=== PATIENT | male | born 1945 | race Caucasian/White ===

== ENCOUNTER 2022-10-26 16:06 | Inpatient (IN) | payer OTHER ==
[~2022-10-26] VITALS: Ht 177.8 cm; Wt 79.4 kg
[~2022-10-26 16:06] MED LIST: ATOR40TA PO; Aspir 8181 MG PO; BISA10S PR; CYAN500 PO; DOCU100 PO; FOLI1 PO; Fleet Enema132 ML PR; LEVOFLOXAC750 MG/150 IV; LOTREL 10-20 M1 EACH PO; ONDA4ODT PO; OXYCODONE PO; SCOPTP TOP; VITAMIN D31000 UNI2 PO; Vitamin B-1250 MCG
[2022-10-26 17:05] LABS: BASOPHILS ABSOLUTE AUTO 0.01 K/mm3 (0.00-0.23); BASOPHILS PERCENT AUTO 0 % (0-2); EOSINOPHILS ABSOLUTE AUTO 0.02 K/mm3 (0.00-0.68); EOSINOPHILS PERCENT AUTO 0 % (0-6); Hematocrit 34.7 % (37.0-53.0); Hemoglobin 11.6 g/dL (13.5-17.5); IMMATURE GRAN ABSOLUTE AUTO 0.04 K/mm3 (0.00-0.10); IMMATURE GRAN PERCENT AUTO 1 % (0-1); LYMPHOCYTES ABSOLUTE AUTO 1.11 K/mm3 (0.84-5.20); LYMPHOCYTES PERCENT AUTO 14 % (21-46); MONOCYTES ABSOLUTE AUTO 0.54 K/mm3 (0.16-1.47); MONOCYTES PERCENT AUTO 7 % (4-13); Mean Corpuscular HGB 33.6 pg (26.0-34.0); Mean Corpuscular HGB Conc 33.4 g/dL (31.5-36.5); Mean Corpuscular Volume 101 fL (80-100); Mean Platelet Volume 10.5 fL (9.1-12.4); NEUTROPHILS ABSOLUTE AUTO 6.36 K/mm3 (1.96-9.15); NEUTROPHILS PERCENT AUTO 79 % (41-73); Platelet Count 235 K/mm3 (150-400); RDW Coefficient Variation 14.2 % (11.7-14.2); RDW Standard Deviation 52.7 fL (35.1-46.3); Red Blood Cell Count 3.45 M/mm3 (4.30-5.90); White Blood Cell Count 8.08 K/mm3 (4.00-11.30)
[2022-10-26 17:27] LABS: Albumin, Blood 2.7 g/dL (3.4-5.0); Albumin/Globulin Ratio 0.7 (0.8-1.8); Bilirubin, Total 0.6 mg/dL (0.1-1.0); Bun/Creatinine Ratio 57.4 (12.0-20.0); Calcium, Blood 8.4 mg/dL (8.5-10.1); Creatinine, Blood 0.68 mg/dL (0.60-1.20); Globulin, Blood 3.8 g/dL (2.2-4.0); Total Protein, Blood 6.5 g/dL (6.4-8.2)
[2022-10-26 22:09] LABS: Hematocrit 26.1 % (37.0-53.0); Hemoglobin 8.6 g/dL (13.5-17.5); Mean Corpuscular HGB 33.7 pg (26.0-34.0); Mean Corpuscular Volume 102 fL (80-100); Mean Platelet Volume 11.1 fL (9.1-12.4); Platelet Count 159 K/mm3 (150-400); RDW Coefficient Variation 14.4 % (11.7-14.2); RDW Standard Deviation 53.8 fL (35.1-46.3); Red Blood Cell Count 2.55 M/mm3 (4.30-5.90); White Blood Cell Count 8.17 K/mm3 (4.00-11.30)
[2022-10-27 02:37] LABS: Hematocrit 20.2 % (37.0-53.0); Hemoglobin 6.8 g/dL (13.5-17.5)
--- NOTE | 2022-10-27 03:30 | NUR ---
PT ADMITTED TO ROOM ICU 10 AT 0105. PT SLIDE TRANSFERRED TO BED FROM [facility]. PT DENIES COMPLAINTS OF ABDOMINAL PAIN OR ANY GI DISTRESS AT THIS TIME. ABDOMEN SLIGHTLY DISTENDED WHICH PT STATES IS NORMAL FOR HIM. PERCUSSION TO ABDOMEN REVEALS HOLLOW GAS-TYPE SOUNDS. NO REBOUND TENDERNESS NOTED. PT ALERT AND ORIENTED. PLEASANT AND COOPERATIVE WITH CARE AND ASSESSMENT. IS SOMEWHAT SLOW IN RESPONSES. IS ABLE TO ANSWER QUESTIONS APPROPRIATELY. DR ARMIJO HAS COME TO SEE PT IN ROOM. PLAN IS FOR AM ENDOSCOPY. SOONER IF NECESSARY. DR ARMIJO STATED THAT NGT TO BE PLACED IF PT'S ABDOMEN BECOMES INCREASINGLY FIRM, AND INCREASE IN PAIN. WILL MONITOR. WILL REVIEW CHART AND PLAN OF CARE FOR THIS PT. PT HAS BEGUN FIRST OF TWO UNITS OF PRBC'S. NO S/S TRANSFUSION REACTIONS TO NOTE.
--- NOTE | 2022-10-27 05:35 | NUR ---
PT HAS COMPLETED FIRST OF TWO UNITS PRBC'S. NO S/S TRANSFUSION REACTIONS TO NOTE. PT PLACED TO ROOM AIR. DESATURATED WHILE ASLEEP TO 85 PERCENT. PLACED NASAL CANNULA AT 3 L/M. PT'S SATURATIONS CURRENTLY 99 PERCENT. WILL TITRATE LOWER ABLE. PT HAS VOIDED ONCE SINCE ADMIT A CONCENTRATED URINE. PT HAS LOW LEVEL PAIN IN ABDOMEN 09/30. STATES SO MUCH BETTER THAN PAIN THAT HE HAD WHEN HE FIRST CAME TO ED. SPOKE SEVERAL TIMES WITH DR ARMIJO AND WITH DR ROSENBERG WHEN THEY CALLED TO CHECK ON PT'S STATUS. ORDERS HAVE BEEN RECEIVED. HAVE NOT NEEDED TO START LEVOPHED FOR BLOOD PRESSURE SUPPORT. WILL CONTINUE TO MONITOR PT, AND WILL REPORT OFF TO ONCOMING RN.
[2022-10-27 06:21] LABS: Albumin, Blood 1.9 g/dL (3.4-5.0); Albumin/Globulin Ratio 0.7 (0.8-1.8); Bilirubin, Total 0.4 mg/dL (0.1-1.0); Bun/Creatinine Ratio 68.5 (12.0-20.0); Calcium, Blood 7.3 mg/dL (8.5-10.1); Creatinine, Blood 0.69 mg/dL (0.60-1.20); Globulin, Blood 2.7 g/dL (2.2-4.0); Potassium, Blood 4.3 mmol/L (3.5-5.5); Total Protein, Blood 4.6 g/dL (6.4-8.2)
[2022-10-27] MEDS ORDERED: CARV6.25 PO (06:23)
[2022-10-27 07:44] LABS: BASOPHILS ABSOLUTE AUTO 0.01 K/mm3 (0.00-0.23); BASOPHILS PERCENT AUTO 0 % (0-2); EOSINOPHILS PERCENT AUTO 0 % (0-6); Hematocrit 27.3 % (37.0-53.0); Hemoglobin 9.2 g/dL (13.5-17.5); IMMATURE GRAN ABSOLUTE AUTO 0.05 K/mm3 (0.00-0.10); IMMATURE GRAN PERCENT AUTO 0 % (0-1); LYMPHOCYTES ABSOLUTE AUTO 0.93 K/mm3 (0.84-5.20); LYMPHOCYTES PERCENT AUTO 8 % (21-46); MONOCYTES ABSOLUTE AUTO 0.67 K/mm3 (0.16-1.47); MONOCYTES PERCENT AUTO 6 % (4-13); Mean Corpuscular HGB 31.2 pg (26.0-34.0); Mean Corpuscular HGB Conc 33.7 g/dL (31.5-36.5); NEUTROPHILS ABSOLUTE AUTO 9.79 K/mm3 (1.96-9.15); NEUTROPHILS PERCENT AUTO 86 % (41-73); RDW Coefficient Variation 22.1 % (11.7-14.2); RDW Standard Deviation 74.8 fL (35.1-46.3); Red Blood Cell Count 2.95 M/mm3 (4.30-5.90); White Blood Cell Count 11.45 K/mm3 (4.00-11.30)
[2022-10-27 07:49] LABS: Mean Corpuscular Volume 93 fL (80-100); Mean Platelet Volume 10.5 fL (9.1-12.4)
[2022-10-27 07:50] LABS: Platelet Count 187 K/mm3 (150-400)
--- NOTE | 2022-10-27 08:37 | NUR ---
Assumed care of pt at 0700. Report received from Naga DANIELS. Pt A&O x 4. Answers questions, follows commands, verbalizes needs. Pleasant and cooperative with care. When asked, he states his last alcoholic bevarge was Monday "I tried to drink a beer, but I couldn't finish it". Pt states he has stopped drinking before and has not experienced alcohol withdrawal. Understands that he will be closely monitored for withdrawals for the next few days. Oral care done with 2 suction swabs. Pt has poor denitition and it appears that many of his teeth have broken off. He states he does not have dentures at home. When asked how he cleans his mouth, he says "I don't" and follows with "I swish around some blackberry srikanth every now and then". Consult placed for dental hygenist. Dr Lamar in to see patient. Provider states he is not concerned for an ileus and will be signing off. Dr Cobos and Dr Torie Chappell in to see patient. Discussed that pt's urine has a foul odor. Plan to send urinalysis. Plan of care discussed with Dr Nunes, he states that endoscopy will happen this afternoon. Pt may have water but should be NPO after 1300. Pt updated on plan of care.
[2022-10-27 09:42] LABS: Source, Urine Voided
[2022-10-27 09:51] LABS: Appearance, Urine Clear (Clear); Bilirubin, Urine Neg (Neg); Blood, Urine 3+ (Neg); Color, Urine Yellow (P-Yellow); Glucose Qualitative, Urine Neg (Neg); Ketones, Urine Neg (Neg); Leukocyte Esterase, Urine Neg (Neg); Nitrite, Urine Neg (Neg); Protein, Urine 1+ (Neg); Urobilinogen, Urine NORM (Normal)
[2022-10-27 10:01] LABS: Bacteria Not Seen /hpf; Squamous Epithelial Cells Not Seen /hpf (Few); White Blood Cells, Urine Not Seen /hpf (0-5)
[2022-10-27 13:04] LABS: Hematocrit 25.9 % (37.0-53.0); Hemoglobin 8.8 g/dL (13.5-17.5)
[2022-10-27 17:12] LABS: Hematocrit 24.3 % (37.0-53.0); Hemoglobin 8.1 g/dL (13.5-17.5)
--- NOTE | 2022-10-27 17:47 | NUR ---
SUMMARY Pt is still awaiting upper endoscopy which is scheduled for this afternoon/evening. Neuro/Musc/Psych: A&O x 4. Answers questions, follows commands, verbalizes needs. Pleasant and cooperative with care. Moves all ext with equal strength and range of motion. Performing ADLs independently, in bed. Spouse at bedside for approx 6 hrs today. No signs of ETOH WD. Resp: Lungs coarse t/o. Remains on 2 LPM NC. Copious amounts of sputum expectorated, pt self suctioning and sample sent to lab. Cardiac: SR epr monitor. BP stable. No levophed used. GI: Pt used bedpan multiple times, but did not actually void. No vomiting. : Voids into urinal. Foul smelling urine. Specimen sent. Skin: Unchanged from initial assessment.
--- NOTE | 2022-10-27 20:00 | NUR ---
ASSUMED CARE OF PT AT 1900. REPORT RECEIVED AT BEDSIDE. PT PRESENTS IN ROOM. ENDOSCOPY TEAM ASSEMBLING IN ROOM FOR SCOPE. PT EDUCATION DONE ON SCOPE. NO COMPLAINTS OF ABDOMINAL PAIN. WILL REVIEW CHART AND PLAN OF CARE FOR THIS PT.
--- NOTE | 2022-10-27 20:09 | NUR ---
10/27/222008 Kim Barba History, Chart, Medications and Allergies reviewed before start of procedure. 3-LEAD EKG REVIEWED WITH PHYSICIAN PRIOR TO START OF PROCEDURE. MONITOR INTACT WITH CONTINUOUS PULSE OXIMETRY, CONTINUOUS END TITAL CO2, AND INTERMITTENT BLOOD PRESSURE. O2 VIA N/C INTACT THROUGHOUT SEDATION/PROCEDURE. LIDOCAINE 2% SPRAY TO BACK OF THROAT PER DR HOLDER ORDER.Bite Block Placed PRIOR TO START.
[2022-10-27 22:16] LABS: Hematocrit 24.4 % (37.0-53.0); Hemoglobin 8.2 g/dL (13.5-17.5)
--- NOTE | 2022-10-28 | NUR ---
PT HAS BEEN INCONTINENT ONCE TO URINE SECONDARY TO URGENCY. DID GET PT OUT OF BED TO BEDSIDE COMMODE WHILE FULL BED CHANGE DONE. DURING THIS TIME, PT DOES PASS OSITO BLOOD APPROX 50 ML. PT STATES HE BELIEVES THIS IS FROM "HEMMORHOIDS" DR ARMIJO CAME TO SEE PT AFTERWARDS AND WAS INFORMED OF MELENA. NO NEW ORDERS RECEIVED. PT HAS REMAINED WITHOUT COMPLAINTS OF ABDOMINAL PAIN. VSS. NO COMPLAINTS OF NAUSEA. HAVE PROVIDED PT CLEAR LIQUIDS. PT TOLERATES THIS WELL. WILL CONTINUE TO MONITOR PT.
[2022-10-28 06:08] LABS: BASOPHILS PERCENT AUTO 0 % (0-2); EOSINOPHILS PERCENT AUTO 0 % (0-6); Hematocrit 22.2 % (37.0-53.0); Hemoglobin 7.4 g/dL (13.5-17.5); IMMATURE GRAN ABSOLUTE AUTO 0.04 K/mm3 (0.00-0.10); IMMATURE GRAN PERCENT AUTO 1 % (0-1); LYMPHOCYTES ABSOLUTE AUTO 0.69 K/mm3 (0.84-5.20); LYMPHOCYTES PERCENT AUTO 10 % (21-46); MONOCYTES ABSOLUTE AUTO 0.46 K/mm3 (0.16-1.47); MONOCYTES PERCENT AUTO 6 % (4-13); Mean Corpuscular HGB 31.4 pg (26.0-34.0); Mean Corpuscular HGB Conc 33.3 g/dL (31.5-36.5); Mean Corpuscular Volume 94 fL (80-100); Mean Platelet Volume 10.5 fL (9.1-12.4); NEUTROPHILS ABSOLUTE AUTO 5.97 K/mm3 (1.96-9.15); NEUTROPHILS PERCENT AUTO 83 % (41-73); Platelet Count 108 K/mm3 (150-400); RDW Coefficient Variation 22.5 % (11.7-14.2); Red Blood Cell Count 2.36 M/mm3 (4.30-5.90); White Blood Cell Count 7.16 K/mm3 (4.00-11.30)
[2022-10-28 06:40] LABS: Anion Gap Unable to Calculate mmol/L (6-16); Blood Urea Nitrogen 40 mg/dL (8-24); Bun/Creatinine Ratio 62.9 (12.0-20.0); CO2, Blood 32 mmol/L (21-32); Calcium, Blood 7.8 mg/dL (8.5-10.1); Chloride, Blood 109 mmol/L (98-108); Creatinine, Blood 0.64 mg/dL (0.60-1.20); Glomerular Filtration Rate 97 (60-); Glucose, Blood 106 mg/dL (70-99); Potassium, Blood 3.9 mmol/L (3.5-5.5); Sodium, Blood 140 mmol/L (136-145)
--- NOTE | 2022-10-28 07:09 | NUR ---
PT HAS BEEN MADE PCU STATUS. WILL MOVE TO PCU ROOM 2. PT AWARE AND ACCEPTING. PT HAS NOT HAD ANY SIGNS OF BLEEDING THIS NIGHT OTHER THAN EARLIER TIME WHEN HE WAS UP TO BEDSIDE COMMODE. PT HAS BEEN CONTINUING ON PROTONIX DRIP. WILL CONTIUE TO MONITOR AND WILL ESCORT PT TO PCU AND WILL GIVE BEDSIDE REPORT TO DAYSHIFT RN.
[2022-10-28 13:49] LABS: Influenza A, PCR NEGATIVE (NEGATIVE); Influenza B, PCR NEGATIVE (NEGATIVE); Resp Syncytial Virus, PCR NEGATIVE (NEGATIVE); SARS-Cov-2 (COVID-19) PCR, MMC NEGATIVE (NEGATIVE)
--- NOTE | 2022-10-28 18:46 | NUR ---
SHIFT SUMMARY PT WAS AN ICU TRANSFER TO [facility] @ APPROX 0715. PT A/O X4. PT WAS ABLE TO TRANSFER BEDS WITH JUST SBA. PT ON 1LPM NC UPON TRANSFER. THIS RN WAS ABLE TO TITRATE HIM OFF O2. SPO2 >92% ON RA. PT HAS FREQUENT PRODUCTIVE COUGH AND AT TIMES CRACKLES NOTED UNTIL PT CLEARS SPUTUM. NO RESPIRATORY DISTRESS NOTED AT REST. RESPIRATIONS EVEN AND UNLABORED. PT DYSPNEIC WITH EXERTION. PCR WAS SENT TO LAB TODAY. PT HR 80-90'S. PT DENIES ANGINA OR CHEST PRESSURE. PT DENIES ABD PAIN. [place] [facility] [place] AND HAD LARGE MELENA ACCORDING TO QA DEVELOPER. THIS RN WAS WITH ANOTHER PT AND WAS NOT ABLE TO WITNESS COLOR OR AMOUNT. PT ASYMPTOMATIC AFTER. PT AT BEDSIDE T/O SHIFT. DR ARMIJO SAW PT. PLAN FOR PT TO BE CLEAR LIQUIDS UNTIL AFTER DINNER AND THEN WATER ONLY UNTIL 6AM AND THEN NPO AT 6AM FOR SCOPE TOMORROW MORNING. NO EDEMA OR WOUNDS NOTED.
[2022-10-29 03:49] LABS: BASOPHILS PERCENT AUTO 0 % (0-2); EOSINOPHILS ABSOLUTE AUTO 0.06 K/mm3 (0.00-0.68); EOSINOPHILS PERCENT AUTO 1 % (0-6); Hematocrit 21.2 % (37.0-53.0); IMMATURE GRAN ABSOLUTE AUTO 0.04 K/mm3 (0.00-0.10); IMMATURE GRAN PERCENT AUTO 1 % (0-1); LYMPHOCYTES ABSOLUTE AUTO 0.94 K/mm3 (0.84-5.20); LYMPHOCYTES PERCENT AUTO 17 % (21-46); MONOCYTES ABSOLUTE AUTO 0.52 K/mm3 (0.16-1.47); MONOCYTES PERCENT AUTO 10 % (4-13); Mean Corpuscular HGB 31.7 pg (26.0-34.0); Mean Corpuscular Volume 96 fL (80-100); NEUTROPHILS PERCENT AUTO 72 % (41-73); NRBC ABSOLUTE 0.02 K/mm3 (0.00-0.02); NRBC Auto 0.4 /100 WBC (0.0-0.2); RDW Coefficient Variation 21.2 % (11.7-14.2); Red Blood Cell Count 2.21 M/mm3 (4.30-5.90); White Blood Cell Count 5.46 K/mm3 (4.00-11.30)
[2022-10-29 03:51] LABS: Mean Platelet Volume 10.5 fL (9.1-12.4); Platelet Count 144 K/mm3 (150-400)
[2022-10-29 03:56] LABS: Bun/Creatinine Ratio 37.9 (12.0-20.0); Creatinine, Blood 0.55 mg/dL (0.60-1.20); Potassium, Blood 3.7 mmol/L (3.5-5.5)
--- NOTE | 2022-10-29 06:24 | NUR ---
SHIFT SUMMARY PATIENT ALERT AND ORIENTED, ABLE TO MAKE NEEDS KNOWN TO STAFF. VSS, PATIENT ON 1L NC DURING THE NIGHT D/T DESATTING WHILE ASLEEP, PATIENT ON RA WHILE AWAKE. O2 SAT >92%. DENIES CHEST PAIN, N/V BUT DID HAVE DARK STOOL IN ATTENDS. USING URINAL WITH ASSISTANCE. 1 PERSON ASSIST TO BEDSIDE COMMODE. NPO SINCE 0600 FOR POSSIBLE PROCEDURE TODAY. NO OTHER CHANGES THIS SHIFT, WILL REPORT TO DAY SHIFT RN.
--- NOTE | 2022-10-29 08:00 | NUR ---
CARE ASSUMPTION This RN assumed care at 0700. vital signs stable. tele sr. Patient is alert and oriented x4. patient reports no pain, chest pain/pressure, or shortness of breath. Patient is able to use call light approrpiately to make needs known. Patient is awaiting for a scope today and is NPO status. protonix drip infusing. Plan of care is up to date. See shift assessment for further details. call light is within reach and bed in lowest position.
[2022-10-29 08:25] LABS: Hematocrit 21.3 % (37.0-53.0); Hemoglobin 6.9 g/dL (13.5-17.5)
[2022-10-29 10:27] LABS: Hematocrit 20.9 % (37.0-53.0); Hemoglobin 6.9 g/dL (13.5-17.5)
--- NOTE | 2022-10-29 11:12 | NUR ---
UPDATE MD Centeno in to see patient. Patient up to chair with assistance from two people. Patient tolerated well. patient sitting at chair with in room and call light is within reach.
[2022-10-29 14:14] LABS: Hematocrit 23.3 % (37.0-53.0); Hemoglobin 7.5 g/dL (13.5-17.5)
[2022-10-29 18:14] LABS: Hematocrit 23.3 % (37.0-53.0); Hemoglobin 7.6 g/dL (13.5-17.5)
--- NOTE | 2022-10-29 18:15 | NUR ---
SHIFT SUMMARY Patient neuro remains intact and unchanged throughout the shift. MD Nunes in to see patient and plan is to do EGD tomorrow morning. Patient eating dinner, full liquid, and at 0000 will be ice chips and water and at 0500 NPO. See orders. Patient sat in chair during the day and then went back to bed. Patient at bedside most of the day. No acute changes. Call light within reach and bed in lowest position.
[2022-10-29 23:04] LABS: Hematocrit 20.7 % (37.0-53.0); Hemoglobin 6.7 g/dL (13.5-17.5)
--- NOTE | 2022-10-29 23:39 | NUR ---
UPDATE Hgb CAME BACK 6.7. CALL PLACED TO RESIDENT. ORDER RECIEVED FOR 1 UNIT PRBC. VITALS REMAIN STABLE.
[2022-10-30 06:09] LABS: Hemoglobin 7.6 g/dL (13.5-17.5)
--- NOTE | 2022-10-30 06:19 | NUR ---
SHIFT SUMMARY PATIENT ALERT AND ORIENTED, ABLE TO MAKE NEEDS KNOWN. VSS, PATIENT WORE 2L NC WHILE SLEEPING, O2 SAT >92%. DENIES CHEST PAIN OR SOB. PATIENT USING URINAL WITH ASSITANCE WITH ADEQUATE OUTPUT. PATIENT RECEIVED 1 UNIT PRBC DURING THE NIGHT FOR Hgb <7. PATIENT DECLINED TURNING BUT IS ABLE TO MOVE SELF IN BED. NO OTHER CHANGES, WILL REPORT TO DAY SHIFT RN.
[2022-10-30 06:29] LABS: Bun/Creatinine Ratio 21.2 (12.0-20.0); Creatinine, Blood 0.52 mg/dL (0.60-1.20); Potassium, Blood 3.9 mmol/L (3.5-5.5)
--- NOTE | 2022-10-30 07:55 | NUR ---
MEDIPORT TO [facility] D&I. FLUSHED WITH 10NS FOR IVF'S.
--- NOTE | 2022-10-30 08:13 | NUR ---
CARE ASSUMPTION This RN assumed care at 0700. Patient is alert and oriented x4. PERRLA. Patient reports no pain, chest pain/pressure, or shortness of breath. Patient vital signs stable. Tele SR. See shift assessment for further detials. Patient performed morning AM care indepdently. Patient left for EGD at apporx 0745. Plan is up to date.
--- NOTE | 2022-10-30 08:22 | NUR ---
10/30/22 0822 Chuck Arana History, Chart, Medications and Allergies reviewed before start of procedure.MONITOR INTACT WITH CONTINUOUS PULSE OXIMETRY, CONTINUOUS END TITAL CO2, AND INTERMITTENT BLOOD PRESSURE.3-LEAD EKG REVIEWED WITH PHYSICIAN PRIOR TO START OF PROCEDURE.O2 VIA POM INTACT THROUGHOUT SEDATION/PROCEDURE.See Anesthesia record.
--- NOTE | 2022-10-30 08:54 | NUR ---
RETURN FROM DAY SURGERY Patient returned from day surgery. vital signs stable. patient is in no distress upon arrival. patient educated on post op vitals and diet change. bed side report given to this RN.
[2022-10-30 09:15] LABS: Hematocrit 24.8 % (37.0-53.0); Hemoglobin 8.2 g/dL (13.5-17.5)
--- NOTE | 2022-10-30 18:14 | NUR ---
SHIFT SUMMARY Patient neuro remains intact, no acute changes. Patient had a couple soft blood pressures this afternoon, MD Centeno informed, patient switched back to PCU status with tele, see orders. Plan of care is up to date. Patient had two bowel movements this shift, that were black and liquid. No acute changes. call light within reach and bed in lowest position.
[2022-10-31 04:09] LABS: BASOPHILS ABSOLUTE AUTO 0.01 K/mm3 (0.00-0.23); BASOPHILS PERCENT AUTO 0 % (0-2); EOSINOPHILS ABSOLUTE AUTO 0.44 K/mm3 (0.00-0.68); EOSINOPHILS PERCENT AUTO 7 % (0-6); Hematocrit 25.1 % (37.0-53.0); Hemoglobin 8.3 g/dL (13.5-17.5); IMMATURE GRAN ABSOLUTE AUTO 0.07 K/mm3 (0.00-0.10); IMMATURE GRAN PERCENT AUTO 1 % (0-1); LYMPHOCYTES ABSOLUTE AUTO 1.04 K/mm3 (0.84-5.20); LYMPHOCYTES PERCENT AUTO 16 % (21-46); MONOCYTES ABSOLUTE AUTO 0.56 K/mm3 (0.16-1.47); MONOCYTES PERCENT AUTO 9 % (4-13); Mean Corpuscular HGB 31.2 pg (26.0-34.0); Mean Corpuscular HGB Conc 33.1 g/dL (31.5-36.5); Mean Corpuscular Volume 94 fL (80-100); Mean Platelet Volume 11.2 fL (9.1-12.4); NEUTROPHILS ABSOLUTE AUTO 4.36 K/mm3 (1.96-9.15); NEUTROPHILS PERCENT AUTO 67 % (41-73); Platelet Count 162 K/mm3 (150-400); RDW Coefficient Variation 19.8 % (11.7-14.2); RDW Standard Deviation 67.6 fL (35.1-46.3); Red Blood Cell Count 2.66 M/mm3 (4.30-5.90); White Blood Cell Count 6.48 K/mm3 (4.00-11.30)
[2022-10-31 04:38] LABS: Bun/Creatinine Ratio 14.7 (12.0-20.0); Calcium, Blood 8.2 mg/dL (8.5-10.1); Creatinine, Blood 0.54 mg/dL (0.60-1.20); Potassium, Blood 3.9 mmol/L (3.5-5.5)
--- NOTE | 2022-10-31 06:12 | NUR ---
SHIFT SUMMARY PATIENT ALERT AND ORIENTED, VSS, PATIENT ON RA DURING THE NIGHT WITH SPO2 >90%. PATIENT ABLE TO GET GOOD AMOUNT OF SLEEP THIS SHIFT. USING URINAL INDEPDENDENTLY. ABLE TO USE BEDSIDE COMMODE WITH ASSISTANCE. PATIENT CONTINUES TO HAVE BLACK STOOLS. TOLERATING PO. NO OTHER CHANGES THIS SHIFT. WILL REPORT TO DAY SHIFT RN.
--- NOTE | 2022-10-31 09:30 | NUR ---
AM NOTE PT ASSITED FROM RESTROOM BACK TO BED. MEDIUM BLACK STOOL IN TOILET. PT IS ALERT AND ORIENTED X4. DENIES SOB, CHEST PAIN, NAUSEA/VOMITTING, OR DIZZINESS. PT UPDATED ON DISCHARGE PLAN. HIS WILL BE HIS RIDE HOME AND WILL CALL HER WHEN HE IS READY TO D/C. DENIES ANY OTHER NEEDS AT THIS TIME.
[2022-10-31] MEDS ORDERED: PANT40 PO (10:03)
--- NOTE | 2022-10-31 10:45 | NUR ---
DISCHARGE NOTE PT EDUCATED ON PROCEDURES, MEDICATION REGIME CHANGES. PT ADVISED TO CALL PCU, IF THERE ARE ANY QUESTIONS REGARDING DISCHARGE INSTRUCTIONS. SPOUSE AND PT TO CALL [facility] FOR A FOLLOWUP APPOINTMENT. PT ADVISED TO RETURN TO THE EMERGENCY DEPARTMENT IF CHEST PAIN, SHORTNESS OF BREATH, DIZZINESS, OR INCREASED/WORSENENING GI BLEEDING. PT'S MEDIPORT D/C WITH HEPARIN FLUSH PER EMAR. PT TRANSPORTED TO CAR VIA WHEELCHAIR TO [facility] AT 1043.
--- NOTE | 2022-10-31 10:59 | NUR ---
I have reviewed the nursing students documentation and am in agreement.
== END 2022-10-31 10:50 | disposition home or self-care (01) | DRG 377 ==
LOC: ER 16:06 → PCU 22:17 → ICUW 22:17 → PCU 10-28 07:20
PROVIDERS: Family Medicine; Internal Medicine; Internal Medicine Gastroenterology; Physician Assistant; Student in an Organized Health Care Education/Training Program; ADMIT Internal Medicine
PROC: 30233N1 Transfusion of Nonautologous Red Blood Cells into Peripheral Vein, Percutaneous Approach (ICD-10-PCS; 2022-10-27)
PROC: 3E033XZ Introduction of Vasopressor into Peripheral Vein, Percutaneous Approach (ICD-10-PCS; 2022-10-27)
PROC: 0DJ08ZZ Inspection of Upper Intestinal Tract, Via Natural or Artificial Opening Endoscopic (ICD-10-PCS; principal; 2022-10-27 18:00)
PROC: 0W3P8ZZ Control Bleeding in Gastrointestinal Tract, Via Natural or Artificial Opening Endoscopic (ICD-10-PCS; 2022-10-30)
DX: K26.4 Chronic or unspecified duodenal ulcer with hemorrhage (principal); J96.01 Acute respiratory failure with hypoxia; R57.8 Other shock; E87.20 Acidosis, unspecified; K56.609 Unspecified intestinal obstruction, unspecified as to partial versus complete obstruction; E87.1 Hypo-osmolality and hyponatremia; D62 Acute posthemorrhagic anemia; K80.21 Calculus of gallbladder without cholecystitis with obstruction; R65.10 Systemic inflammatory response syndrome (SIRS) of non-infectious origin without acute organ dysfunction; K22.11 Ulcer of esophagus with bleeding; E83.51 Hypocalcemia; K43.2 Incisional hernia without obstruction or gangrene; E53.8 Deficiency of other specified B group vitamins; K40.90 Unilateral inguinal hernia, without obstruction or gangrene, not specified as recurrent; K22.89 Other specified disease of esophagus; K44.9 Diaphragmatic hernia without obstruction or gangrene; F10.10 Alcohol abuse, uncomplicated; H04.129 Dry eye syndrome of unspecified lacrimal gland; D50.9 Iron deficiency anemia, unspecified; I50.9 Heart failure, unspecified; Z20.822 Contact with and (suspected) exposure to COVID-19; R73.9 Hyperglycemia, unspecified; E86.1 Hypovolemia; E87.8 Other disorders of electrolyte and fluid balance, not elsewhere classified; N19 Unspecified kidney failure; E88.09 Other disorders of plasma-protein metabolism, not elsewhere classified; E16.2 Hypoglycemia, unspecified; I11.0 Hypertensive heart disease with heart failure; Z87.01 Personal history of pneumonia (recurrent); Z86.018 Personal history of other benign neoplasm; Z90.49 Acquired absence of other specified parts of digestive tract; Z85.038 Personal history of other malignant neoplasm of large intestine; Z86.73 Personal history of transient ischemic attack (TIA), and cerebral infarction without residual deficits; Z79.899 Other long term (current) drug therapy; Z79.82 Long term (current) use of aspirin; Z79.891 Long term (current) use of opiate analgesic; Z79.02 Long term (current) use of antithrombotics/antiplatelets; Z79.2 Long term (current) use of antibiotics; Z98.890 Other specified postprocedural states; Z98.42 Cataract extraction status, left eye; Z98.41 Cataract extraction status, right eye
CPT/HCPCS: 0241U; 36430; 71045; 74018; 74177; 80048; 80053; 81001; 83605; 83690; 84145; 85014; 85018; 85025; 85027; 86850; 86900; 86901; 86920; 86923; 87070; 87205; 94760; 94762; 96365-59; 96375; 96376; 99285-25; A9270; C9113; J0171; J0696; J1430; J1642; J2001; J2354; J2543; J2704; J7030; J7050; J7120; P9016; Q9967